=== PATIENT | male | born 1935 | race Caucasian/White ===

== ENCOUNTER 2017-10-24 10:14 | Day surgery (SDC) | payer MEDICARE ==
[~2017-10-24] VITALS: Ht 182.9 cm; Wt 68.7 kg
[~2017-10-24 10:14] MED LIST: ASPI81CH PO; CENTRUM SILVER1 EAC2 PO; HYDACE10B PO; Hydrochlorothia25 MG PO; IRON 100 PLUS1 EACH PO; LEVSOD75 PO; LISI20 PO; LOPE2C PO; METO25ER PO; METR59TL
[2018-03-07] MEDS ORDERED: Omeprazole20 M1 (11:16)
[2018-03-07] MEDS ORDERED: PRAV20 PO (11:18)
[2018-03-07] MEDS ORDERED: FLUOROURACIL (11:21)
== END 2017-10-24 12:13 | disposition home or self-care (01) ==
LOC: ORSCSDS 10:14
PROVIDERS: Internal Medicine Gastroenterology
PROC: 0D758ZZ Dilation of Esophagus, Via Natural or Artificial Opening Endoscopic (ICD-10-PCS; principal; 2017-10-24 11:30)
PROC: 0DB58ZX Excision of Esophagus, Via Natural or Artificial Opening Endoscopic, Diagnostic (ICD-10-PCS; principal; 2017-10-24 11:30)
DX: K22.2 Esophageal obstruction (principal); R13.12 Dysphagia, oropharyngeal phase; K21.9 Gastro-esophageal reflux disease without esophagitis; I10 Essential (primary) hypertension; Z79.82 Long term (current) use of aspirin; Z79.899 Other long term (current) drug therapy; Z87.891 Personal history of nicotine dependence
CPT/HCPCS: 88305; J7120

== ENCOUNTER → 2017-12-11 | Outpatient (CLI) | payer MEDICARE ==
[2017-12-11 12:12] LABS: BASOPHILS ABSOLUTE AUTO 0.03 K/mm3 (0.00-0.23); BASOPHILS PERCENT AUTO 1 % (0-2); EOSINOPHILS ABSOLUTE AUTO 0.27 K/mm3 (0.00-0.68); EOSINOPHILS PERCENT AUTO 5 % (0-6); Hemoglobin 12.4 g/dL (13.5-17.5); IMMATURE GRAN ABSOLUTE AUTO 0.06 K/mm3 (0.00-0.10); IMMATURE GRAN PERCENT AUTO 1 % (0-1); LYMPHOCYTES ABSOLUTE AUTO 0.95 K/mm3 (0.84-5.20); LYMPHOCYTES PERCENT AUTO 17 % (21-46); MONOCYTES ABSOLUTE AUTO 0.71 K/mm3 (0.16-1.47); MONOCYTES PERCENT AUTO 13 % (4-13); Mean Corpuscular HGB 28.8 pg (26.0-34.0); Mean Corpuscular HGB Conc 32.6 g/dL (31.5-36.5); Mean Corpuscular Volume 88 fL (80-100); Mean Platelet Volume 9.3 fL (9.1-12.4); NEUTROPHILS ABSOLUTE AUTO 3.43 K/mm3 (1.96-9.15); NEUTROPHILS PERCENT AUTO 63 % (41-73); Platelet Count 269 K/mm3 (150-400); RDW Coefficient Variation 13.6 % (11.7-14.2); RDW Standard Deviation 43.9 fL (35.1-46.3); White Blood Cell Count 5.45 K/mm3 (4.00-11.30)
[2017-12-11 12:29] LABS: Alanine Aminotransfer (ALT/SGP 34 U/L (12-78); Albumin, Blood 3.6 g/dL (3.4-5.0); Albumin/Globulin Ratio 0.9 (0.8-1.8); Alk Phos 74 U/L (40-126); Anion Gap 5 mmol/L (6-16); Aspartate Aminotrans (AST/SGOT 28 U/L (12-37); Bilirubin, Total 0.6 mg/dL (0.1-1.0); Blood Urea Nitrogen 13 mg/dL (8-24); Bun/Creatinine Ratio 11.3 (12.0-20.0); CO2, Blood 33 mmol/L (21-32); Calcium, Blood 9.5 mg/dL (8.5-10.1); Chloride, Blood 101 mmol/L (98-108); Creatinine, Blood 1.15 mg/dL (0.60-1.20); Globulin, Blood 3.8 g/dL (2.2-4.0); Glomerular Filtration Rate >60 (60-); Glucose, Blood 105 mg/dL (70-99); Potassium, Blood 4.2 mmol/L (3.5-5.5); Sodium, Blood 139 mmol/L (136-145); Total Protein, Blood 7.4 g/dL (6.4-8.2)
[2017-12-11 12:30] LABS: Troponin I <0.017 ng/mL (0.000-0.040)
== END ==
LOC: LAB EV 12:09 → LAB SHORT 12:09
PROVIDERS: Physician Assistant Surgical
DX: R42 Dizziness and giddiness (principal)
CPT/HCPCS: 80048; 80053; 84484; 85025

== ENCOUNTER 2018-03-04 15:33 | Emergency (ER) | payer MEDICARE ==
[~2018-03-04] VITALS: Ht 182.9 cm; Wt 65.8 kg
[2018-03-07] MEDS ORDERED: Omeprazole20 M1 (11:16)
[2018-03-07] MEDS ORDERED: PRAV20 PO (11:18)
[2018-03-07] MEDS ORDERED: FLUOROURACIL (11:21)
== END 2018-03-04 16:40 | disposition home or self-care (01) ==
LOC: ER 15:33
DX: S42.032A Displaced fracture of lateral end of left clavicle, initial encounter for closed fracture (principal); Y93.01 Activity, walking, marching and hiking; Z79.899 Other long term (current) drug therapy; Z79.82 Long term (current) use of aspirin; W18.30XA Fall on same level, unspecified, initial encounter; Z23 Encounter for immunization
CPT/HCPCS: 73030; 90714

== ENCOUNTER 2021-10-21 10:33 | Day surgery (SDC) | payer MEDICARE ==
[~2021-10-21] VITALS: Ht 182.9 cm; Wt 66.3 kg
[~2021-10-21 10:33] MED LIST changes: +Aspirin EC81 MG PO; +FLUOROURACIL; +FLUOROURACIL30 G2; +HYDCHL25 PO; +LISI20; +Metrogel 1% 6060 GM; +Norco 10-325 T1 EACH PO; +OMEP20ER PO; +ONDA4ODT MM; +Omeprazole20 M1; +PRAV20 PO; +PRAVASTATIN SOD10 MG PO; +Prinivil10 MG PO; +VITAMIN D325 MC3 PO
--- NOTE | 2021-10-21 13:31 | NUR ---
10/21/21 1331 Jerald Ford 2% XYLOCAINE WITH EPI 1:100,000 MIXED 1:1 WITH 0.9% INJ SALINE TO ACHIEVE SOLUTION OF 1% XYLOCAINE WITH EPI 1:200,000. DR ANGELO INJ 2ML'S INTO OPSITE AT 1310.
== END 2021-10-21 15:20 | disposition home or self-care (01) ==
LOC: ORSCSDS 10:33
PROVIDERS: Otolaryngology
PROC: 0HX1XZZ Transfer Face Skin, External Approach (ICD-10-PCS; principal; 2021-10-21 11:45)
DX: C44.301 Unspecified malignant neoplasm of skin of nose (principal); I10 Essential (primary) hypertension; K21.9 Gastro-esophageal reflux disease without esophagitis; F20.9 Schizophrenia, unspecified; E03.9 Hypothyroidism, unspecified; Z79.899 Other long term (current) drug therapy; Z79.82 Long term (current) use of aspirin
CPT/HCPCS: 88305; 88331; 88332; A9270; J0171; J1100; J2001; J2370; J2405; J2704; J3010; J7120

== ENCOUNTER → 2021-10-23 | Outpatient (CLI) | payer MEDICARE | END | disposition home or self-care (01) | LOC: LAB 11:52 → LAB SHORT 11:52 | DX: N34.2 Other urethritis (principal) | CPT/HCPCS: 87077; 87086; 87186 ==

== ENCOUNTER → 2023-01-18 | Outpatient (CLI) | payer MEDICARE | END | disposition home or self-care (01) | LOC: PLD 07:58 → LAB SHORT 07:58 | DX: L57.0 Actinic keratosis (principal) | CPT/HCPCS: 88305 ==

== ENCOUNTER 2024-07-26 11:34 | Emergency (ER) | payer MEDICARE ==
[~2024-07-26] VITALS: Ht 182.9 cm; Wt 52.2 kg
[2024-07-26 12:39] VITALS: BP 140/71
== END 2024-07-26 12:40 | disposition home or self-care (01) ==
LOC: ER 11:34
DX: S01.81XA Laceration without foreign body of other part of head, initial encounter (principal); W01.0XXA Fall on same level from slipping, tripping and stumbling without subsequent striking against object, initial encounter; Z79.82 Long term (current) use of aspirin; Z79.899 Other long term (current) drug therapy
CPT/HCPCS: 70450; 99283-25

== ENCOUNTER 2024-12-10 11:04 | Inpatient (IN) | payer MEDICARE ==
[~2024-12-10] VITALS: Ht 182.9 cm; Wt 55.3 kg
[2024-12-10] VITALS (25 sets, daily range): BP systolic 74–130; BP diastolic 45–70
[2024-12-10 11:26] LABS: BASOPHILS ABSOLUTE AUTO 0.05 K/mm3 (0.00-0.23); BASOPHILS PERCENT AUTO 0 % (0-2); EOSINOPHILS ABSOLUTE AUTO 0.03 K/mm3 (0.00-0.68); EOSINOPHILS PERCENT AUTO 0 % (0-6); Hematocrit 31.8 % (37.0-53.0); Hemoglobin 10.2 g/dL (13.5-17.5); IMMATURE GRAN ABSOLUTE AUTO 0.38 K/mm3 (0.00-0.10); IMMATURE GRAN PERCENT AUTO 2 % (0-1); LYMPHOCYTES ABSOLUTE AUTO 0.25 K/mm3 (0.84-5.20); LYMPHOCYTES PERCENT AUTO 1 % (21-46); MONOCYTES ABSOLUTE AUTO 0.89 K/mm3 (0.16-1.47); MONOCYTES PERCENT AUTO 5 % (4-13); Mean Corpuscular HGB 26.3 pg (26.0-34.0); Mean Corpuscular HGB Conc 32.1 g/dL (31.5-36.5); Mean Corpuscular Volume 82 fL (80-100); Mean Platelet Volume 9.3 fL (9.1-12.4); NEUTROPHILS ABSOLUTE AUTO 17.99 K/mm3 (1.96-9.15); NEUTROPHILS PERCENT AUTO 92 % (41-73); Platelet Count 287 K/mm3 (150-400); RDW Coefficient Variation 17.9 % (11.7-14.2); RDW Standard Deviation 52.5 fL (35.1-46.3); Red Blood Cell Count 3.88 M/mm3 (4.30-5.90); White Blood Cell Count 19.59 K/mm3 (4.00-11.30)
[2024-12-10 11:59] LABS: Albumin, Blood 2.8 g/dL (3.4-5.0); Albumin/Globulin Ratio 0.6 (0.8-1.8); Bilirubin, Total 0.6 mg/dL (0.1-1.0); Bun/Creatinine Ratio 23.1 (12.0-20.0); Calcium, Blood 9.5 mg/dL (8.5-10.1); Globulin, Blood 4.9 g/dL (2.2-4.0); Potassium, Blood 3.7 mmol/L (3.5-5.5); Total Protein, Blood 7.7 g/dL (6.4-8.2)
[2024-12-10] MEDS ORDERED: NS 1,000 ML IV SCH (12:00)
[2024-12-10] MEDS ORDERED: CefTRIAXone Sodium 1,000 MG in NS 100 ML IV ONE (12:00)
[2024-12-10] MEDS ORDERED: Azithromycin 500 MG in NS 250 ML IV ONE (12:00)
[2024-12-10] MEDS ORDERED: FLU VACC TS2024-25(6MOS UP)/PF 45 MCG/0.5 ML SYRINGE IM SCH (13:10)
[2024-12-10 13:20] LABS: Source, Urine Clean Catch
[2024-12-10 13:36] LABS: Appearance, Urine Clear (Clear); Bilirubin, Urine Neg (Neg); Blood, Urine Neg (Neg); Glucose Qualitative, Urine Neg (Neg); Ketones, Urine Neg (Neg); Leukocyte Esterase, Urine Neg (Neg); Nitrite, Urine Neg (Neg); Protein, Urine Neg (Neg); Urobilinogen, Urine NORM (Normal)
[2024-12-10] MEDS ORDERED: NS 1,000 ML IV ONE (13:53)
[2024-12-10] MEDS ORDERED: NS 1,000 ML BAG IR ONE ×2 (14:00→14:05)
[2024-12-10 14:12] LABS: Color, Urine Pale Yellow (P-Yellow)
--- NOTE | 2024-12-10 18:58 | NUR ---
SHIFT SUMMARY: PATIENT ADMITTED TO UNIT AT 1520. NEURO: PATIENT ALERT AND ORIENTED X4. PATIENT REPORTS DIZZINESS AT HOME AT TIMES. PATIENT DENIED THIS AFTERNOON. PATIENT STEADY ON FEET. PATIENT WEAK IN ALL EXTREMITIES. PATIENT ABLE TO MAKE NEEDS KNOWN AND USES CALL LIGHT APPROPRIATELY. RESPIRATORY: PATIENT REMAINED STABLE ON 2L VIA NC. SPO2 >94%. PATIENT DENIED SHORTNESS OF BREATH OR DIFFICULTY BREATHING. PATIENT HAS A MOIST COUGH AND REPORTS SPUTUM PRODUCTION. CARDIAC: PATIENT HAS AN IRREGULAR HEART RHYTHM. PATIENT HAS A MURMUR AND REPORTS HE HAS "FOR YEARS". PATIENT EXPERIENCED VARIABLE BLOOD PRESSURES WITH SBP LOW 77 AND MAPS <[address] CULLEN AWARE. HR IN THE 70S-80S. GI/: PATIENT REPORTS IT HAS BEEN RECOMMENDED TO HIM BEFORE TO HAVE A FEED TUBE PLACED. PATIENT REPORTS HE DOES NOT WANT THAT. HE IS AWARE THAT IT IS LIKELY THAT HE IS ASPIRATING WITH SWALLOWING. DR. CULLEN IS AWARE. SPEECH THERAPY ORDERED, BUT NO ORDERS TO KEEP NPO AT THIS TIME. IF SITTING UP STRAIGHT, TAKING SMALL SIPS, PATIENT ABLE TO SWALLOW WITHOUT COUGHING. PER ER REPORT, PATIENT VOIDING IN THE ER. PSYCHSOCIAL: PATIENT VISITED BY MULTIPLE DENOMINATIONAL MEMBERS. PATIENT VISITED BY HIS DAUGHTER AMBROSE. SHE REPORTS CONCERN OVER THE PATIENT'S ROOMMATE TWAN. PATIENT DENIES ANY MISTREATMENT FROM HIS ROOMMATE. PATIENT REPORTS HE FEELS SAFE GOING HOME.
[2024-12-10] MEDS ORDERED: Lactobacil 2-S.Thermo-Bifido 1 1 Cap PO SCH (21:00)
[2024-12-11] VITALS (34 sets, daily range): BP systolic 90–160; BP diastolic 45–69
[2024-12-11 03:59] LABS: BASOPHILS ABSOLUTE AUTO 0.09 K/mm3 (0.00-0.23); BASOPHILS PERCENT AUTO 0 % (0-2); EOSINOPHILS ABSOLUTE AUTO 0.17 K/mm3 (0.00-0.68); EOSINOPHILS PERCENT AUTO 1 % (0-6); Hematocrit 25.7 % (37.0-53.0); Hemoglobin 8.3 g/dL (13.5-17.5); IMMATURE GRAN ABSOLUTE AUTO 0.47 K/mm3 (0.00-0.10); IMMATURE GRAN PERCENT AUTO 2 % (0-1); LYMPHOCYTES ABSOLUTE AUTO 1.33 K/mm3 (0.84-5.20); LYMPHOCYTES PERCENT AUTO 5 % (21-46); MONOCYTES ABSOLUTE AUTO 1.76 K/mm3 (0.16-1.47); MONOCYTES PERCENT AUTO 6 % (4-13); Mean Corpuscular HGB 26.6 pg (26.0-34.0); Mean Corpuscular HGB Conc 32.3 g/dL (31.5-36.5); Mean Corpuscular Volume 82 fL (80-100); Mean Platelet Volume 8.9 fL (9.1-12.4); NEUTROPHILS ABSOLUTE AUTO 25.42 K/mm3 (1.96-9.15); NEUTROPHILS PERCENT AUTO 87 % (41-73); Platelet Count 247 K/mm3 (150-400); RDW Coefficient Variation 17.8 % (11.7-14.2); RDW Standard Deviation 53.1 fL (35.1-46.3); Red Blood Cell Count 3.12 M/mm3 (4.30-5.90); White Blood Cell Count 29.24 K/mm3 (4.00-11.30)
[2024-12-11 04:17] LABS: Albumin, Blood 2.3 g/dL (3.4-5.0); Albumin/Globulin Ratio 0.5 (0.8-1.8); Bilirubin, Total 0.5 mg/dL (0.1-1.0); Calcium, Blood 9.1 mg/dL (8.5-10.1); Creatinine, Blood 0.82 mg/dL (0.60-1.20); Globulin, Blood 4.3 g/dL (2.2-4.0); Magnesium, Blood 1.9 mg/dL (1.6-2.4); Phosphorus, Blood 2.5 mg/dL (2.5-4.9); Potassium, Blood 4.2 mmol/L (3.5-5.5); Total Protein, Blood 6.6 g/dL (6.4-8.2)
[2024-12-11] MEDS ORDERED: Levothyroxine Sodium 0.075 MG Tab PO SCH (06:00)
--- NOTE | 2024-12-11 06:45 | NUR ---
SHIFT ASSESSMENT PT HAS TOLERATED NIGHT WELL WITH NO CHANGES IN STATUS. PT WAS ABLE TO AMBULATE WITH ONE PERSON STANDBY ASSIST TO BEDSIDE TOILET WITHOUT ISSUE. PT ABLE TO COMMUNICATE NEEDS, QUESTIONS, OR CONCERNS CLEARLY. PT CURRENTLY RESTING IN ROOM. WILL CONTINUE TO MONITOR UNTIL REPORT PASSED TO DAY SHIFT TEAM.
[2024-12-11] MEDS ORDERED: Azithromycin 500 MG in NS 250 ML IV SCH (09:00)
[2024-12-11] MEDS ORDERED: Enoxaparin 40 MG/0.4 ML SYR SC SCH (09:00)
--- NOTE | 2024-12-11 09:56 | NUR ---
"Spiritual Care Visit | Pt. Request Pt. is awake in bed. Pt is pleasant. Facilitated introductions and a life review. Listened with empathy and interest. Pt. displayed evidence of trust and asked for prayer. Prayed with Pt. Pt. 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
--- NOTE | 2024-12-11 10:38 | NUR ---
THIS RN ASSUMED CARE OF PT AT 0700. PT IS ALERT AND ORIENTED X4, CALLS OUT APPROPRIATELY. PT SOUNDS CLEAR ON THE RIDE SIDE AND A LITTLE COURSE ON THE LEFT SIDE, ON 2L NC SATTING >92%, PT DENIES SHORTNESS OF BREATH. PT HEART RATE IS IN THE 60s, BLOOD PRESSURE STABLE AT 90/66 MAP >65, PT DENIES CHEST PAIN UPON ASSESSMENT. DR. CULLEN AT BEDSIDE, PT DOES NOT PASS SPEECH EVALUATION, PT HAD A TALK WITH ABOUT A FEEDING TUBE, PT IN THE PAST HAS NOT WANTED A FEEDING TUBE. NO OTHER INTERVENTIONS AT THIS TIME. PLAN OF CARE CONTINUED.
[2024-12-11] MEDS ORDERED: CefTRIAXone Sodium 1,000 MG in NS 100 ML IV SCH (12:00)
--- NOTE | 2024-12-11 15:38 | NUR ---
ASSUMED CARE OF PT, REPORT RECEIVED FROM EWA DAVIS. PT ASLEEP DURING BEDSIDE REPORT.
--- NOTE | 2024-12-11 18:28 | NUR ---
PT SUMMARY; NO ACUTE CHANGE SINCE TRANSFER OF CARE. PT SAT ON THE SIDE OF THE BED FOR DINNER TOLERATED DIET CONSUMED 100% OF ENSURE AND 50% OF MEAL. PT SBA FOR TRANSFERS AMBULATING IN THE ROOM. VITAL HRR 70'S SR, SBP 120'S, SATS ABOVE 95% ON 1L OF O2, AFEBRILE. PT NOW RESTING IN BED CALL LIGHTS IN REACH WILL REPORT TO ONCOMING SHIFT
[2024-12-12 03:28] VITALS: BP 94/61
[2024-12-12 05:13] LABS: BASOPHILS ABSOLUTE AUTO 0.05 K/mm3 (0.00-0.23); BASOPHILS PERCENT AUTO 0 % (0-2); EOSINOPHILS ABSOLUTE AUTO 0.45 K/mm3 (0.00-0.68); EOSINOPHILS PERCENT AUTO 2 % (0-6); Hematocrit 27.4 % (37.0-53.0); Hemoglobin 8.5 g/dL (13.5-17.5); IMMATURE GRAN ABSOLUTE AUTO 0.28 K/mm3 (0.00-0.10); IMMATURE GRAN PERCENT AUTO 1 % (0-1); LYMPHOCYTES ABSOLUTE AUTO 1.08 K/mm3 (0.84-5.20); LYMPHOCYTES PERCENT AUTO 4 % (21-46); MONOCYTES ABSOLUTE AUTO 1.44 K/mm3 (0.16-1.47); MONOCYTES PERCENT AUTO 6 % (4-13); Mean Corpuscular HGB 25.9 pg (26.0-34.0); Mean Corpuscular Volume 84 fL (80-100); Mean Platelet Volume 9.5 fL (9.1-12.4); NEUTROPHILS PERCENT AUTO 87 % (41-73); Platelet Count 274 K/mm3 (150-400); RDW Coefficient Variation 17.7 % (11.7-14.2); RDW Standard Deviation 54.2 fL (35.1-46.3); Red Blood Cell Count 3.28 M/mm3 (4.30-5.90)
[2024-12-12 05:43] LABS: Albumin, Blood 2.2 g/dL (3.4-5.0); Anion Gap 5 mmol/L (3-11); Blood Urea Nitrogen 26 mg/dL (8-24); Bun/Creatinine Ratio 34.6 (12.0-20.0); CO2, Blood 33 mmol/L (21-32); Calcium, Blood 9.2 mg/dL (8.5-10.1); Chloride, Blood 103 mmol/L (98-108); Creatinine, Blood 0.75 mg/dL (0.60-1.20); Glomerular Filtration Rate 86 (60-); Glucose, Blood 105 mg/dL (70-99); Phosphorus, Blood 2.3 mg/dL (2.5-4.9); Potassium, Blood 3.9 mmol/L (3.5-5.5); Sodium, Blood 137 mmol/L (136-145)
--- NOTE | 2024-12-12 07:11 | NUR ---
Shift Summary Pt transferred from ICU. He is on 2L O2 and breathing well, no dyspnea. He does have a weak cough and some coarseness in the base of his L lung. He can cough but it is very weak. He slept well t/o the night. He is 1 SBA to the BR. Pt is AOX4 however is impulsive upon waking up and sets off the bed alarm forgetting to call.
[2024-12-12 07:29] VITALS: BP 92/55
[2024-12-12] MEDS ORDERED: NS 250 ML IV PRN (10:55)
[2024-12-12] MEDS ORDERED: Potassium Phosphate Dibasic 10 MM in Dextrose 5% 250 ML IV STA (12:03)
[2024-12-12] MEDS ORDERED: Midodrine 2.5 MG Tab PO SCH (13:00)
[2024-12-12] MEDS ORDERED: Sodium Phosphate 10 MM in Dextrose 5% 250 ML IV SCH (15:00)
[2024-12-12 15:26] VITALS: BP 137/70
--- NOTE | 2024-12-12 16:40 | NUR ---
spiritual care visit. Pt. is resting but responds when I enter the room . Great grand-daughter is present at bedside, as is a nurse. Pt. verbalized that he was feeling better than the day before. Listen with empathy and a calming presence. Prayed with the Pt. Pt. verbalized gratitude for the spiritual care visit.
--- NOTE | 2024-12-12 17:27 | NUR ---
GOALS OF CARE VISIT TASIA IS A/O X4. THIS PC RN HAS SEEN PT AMBULATING THE HALLWAY WITH FWW AND SBA ASSIST. TASIA IS VERY PLEASANT AND ACTIVLY ENGAUGED IN HIS CARE. HE REPORTS, "I'VE LOST ALL THE WEIGHT I CAN AFFORD TO LOSE." HE DOES NOT HAVE AN APPETITE OR FEEL HUNGER. EATING 1-2 MEALS/DAY (OATMEAL, CREAM OF WHEAT, CREAM SOUP). "I FEEL GOOD WITH THE 3 SUPER JESSEE ENSURES I HAVE BEEN DRINKING HERE." THIS PC RN ENCOURAGED PT TO INCREASE PO CALORIC INTAKE. SUGGESTIONS OF MAKING HIS HOT CEREALS WITH WHOLE MILK OR HALF/HALF. CONTINUE WITH ENSURES 3 TIMES/DAY. TASIA DOES NOT WANT A FEEDING TUBE IF NEEDED. "I HAD ONE THANKS TIME OF 2008 FOR 6 MONTHS. I DON'T WANT TO DO THAT AGAIN. MY HELPED ME." HE IS WILLING TO REVIEW HOSPICE OPTIONS IF HE DOESN'T IMPROVE IN THE NEXT WEEK. HIS GOAL: "ON MY 89TH BIRTHDAY, I WANT TO [place]ALK TO [place] AT [facility]. IF I CAN'T WALK MY FAMILY CAN WHEEL ME UP THERE." PC TO REMAIN AVAILABLE.
[2024-12-12 17:36] VITALS: BP 127/69
[2024-12-12 19:16] VITALS: BP 162/89
[2024-12-13 04:35] VITALS: BP 121/80
[2024-12-13 04:50] LABS: BASOPHILS ABSOLUTE AUTO 0.05 K/mm3 (0.00-0.23); BASOPHILS PERCENT AUTO 0 % (0-2); EOSINOPHILS ABSOLUTE AUTO 0.61 K/mm3 (0.00-0.68); EOSINOPHILS PERCENT AUTO 3 % (0-6); Hematocrit 25.9 % (37.0-53.0); Hemoglobin 8.4 g/dL (13.5-17.5); IMMATURE GRAN ABSOLUTE AUTO 0.14 K/mm3 (0.00-0.10); IMMATURE GRAN PERCENT AUTO 1 % (0-1); LYMPHOCYTES ABSOLUTE AUTO 1.44 K/mm3 (0.84-5.20); LYMPHOCYTES PERCENT AUTO 7 % (21-46); MONOCYTES ABSOLUTE AUTO 1.39 K/mm3 (0.16-1.47); MONOCYTES PERCENT AUTO 7 % (4-13); Mean Corpuscular HGB 26.5 pg (26.0-34.0); Mean Corpuscular HGB Conc 32.4 g/dL (31.5-36.5); Mean Corpuscular Volume 82 fL (80-100); Mean Platelet Volume 9.5 fL (9.1-12.4); NEUTROPHILS ABSOLUTE AUTO 17.13 K/mm3 (1.96-9.15); NEUTROPHILS PERCENT AUTO 83 % (41-73); Platelet Count 270 K/mm3 (150-400); RDW Coefficient Variation 17.4 % (11.7-14.2); RDW Standard Deviation 51.7 fL (35.1-46.3); Red Blood Cell Count 3.17 M/mm3 (4.30-5.90); White Blood Cell Count 20.76 K/mm3 (4.00-11.30)
--- NOTE | 2024-12-13 04:58 | NUR ---
SHIFT SUMMARY PT ALERT AND ORIENTED TIMES 3-4. PT ADMITTED FOR ACUTE HYPOXIC RESPIRATORY FAILURE. ABLE TO MAKE NEEDS KNOWN, APPROPRIATE WITH CALL LIGHT. PT IS INDEPENDENT TO THE TOILET WITH MINIMAL ASSIST, AND ABLE TO AMBULATE AROUND ROOM. PT IS RECEPTIVE TO CARE. BED IN LOW POSITION, CALL LIGHT WITHIN REACH, RAILS TIMES 2.
[2024-12-13 05:14] LABS: Albumin, Blood 2.1 g/dL (3.4-5.0); Anion Gap 7 mmol/L (3-11); Blood Urea Nitrogen 25 mg/dL (8-24); Bun/Creatinine Ratio 37.5 (12.0-20.0); CO2, Blood 31 mmol/L (21-32); Calcium, Blood 9.1 mg/dL (8.5-10.1); Chloride, Blood 100 mmol/L (98-108); Creatinine, Blood 0.67 mg/dL (0.60-1.20); Glomerular Filtration Rate 89 (60-); Glucose, Blood 106 mg/dL (70-99); Phosphorus, Blood 3.3 mg/dL (2.5-4.9); Sodium, Blood 134 mmol/L (136-145)
[2024-12-13 07:33] VITALS: BP 106/76
[2024-12-13 13:30] VITALS: BP 114/78
[2024-12-13 16:51] VITALS: BP 123/70
[2024-12-13 20:33] VITALS: BP 112/69
[2024-12-14 05:10] VITALS: BP 109/67
--- NOTE | 2024-12-14 06:18 | NUR ---
SHIFT SUMMARY PT ALERT AND ORIENTED TIMES 3-4. PT ADMITTED FOR ACUTE HYPOXIC RESPIRATORY FAILURE. ABLE TO MAKE NEEDS KNOWN, APPROPRIATE WITH CALL LIGHT. PT IS INDEPENDENT TO THE TOILET WITH MINIMAL ASSIST, AND ABLE TO AMBULATE AROUND ROOM. PT TOOK WALKS AROUND UNIT WITH WALKER. PT IS RECEPTIVE TO CARE. BED IN LOW POSITION, CALL LIGHT WITHIN REACH, RAILS TIMES 2.
[2024-12-14 07:27] VITALS: BP 120/79
[2024-12-14 12:18] VITALS: BP 122/73
[2024-12-14] MEDS ORDERED: VISBIOME 112.51 EACH PO (14:25)
[2024-12-14] MEDS ORDERED: MIDO5 PO (14:26)
[2024-12-14] MEDS ORDERED: LEVOFLOXACIN750 MG PO (14:26)
--- NOTE | 2024-12-14 15:27 | NUR ---
DC SUMMARY PT DC THIS SHIFT HOME WITH HOME HEALTH. DC INSTRUCTION GONE OVER WITH PT WHOM STATED UNDERSTANDING. PT WAS ESCORTED OUT TO PRIVATE VEHICLE VIA WC BY DANETTE.
== END 2024-12-14 15:00 | disposition home health service (06) | DRG 871 ==
LOC: ER 11:04 → ICUE 13:07 → MEDS 12-11 23:18
PROVIDERS: Emergency Medicine; ADMIT Family Medicine
DX: A41.9 Sepsis, unspecified organism (principal); J18.9 Pneumonia, unspecified organism; J96.01 Acute respiratory failure with hypoxia; I50.32 Chronic diastolic (congestive) heart failure; Z68.1 Body mass index [BMI] 19.9 or less, adult; I95.89 Other hypotension; Z66 Do not resuscitate; I35.0 Nonrheumatic aortic (valve) stenosis; R13.10 Dysphagia, unspecified; E03.9 Hypothyroidism, unspecified; D64.9 Anemia, unspecified; I11.0 Hypertensive heart disease with heart failure; K21.9 Gastro-esophageal reflux disease without esophagitis; E78.5 Hyperlipidemia, unspecified; R62.7 Adult failure to thrive; Z79.82 Long term (current) use of aspirin; Z79.891 Long term (current) use of opiate analgesic; Z85.850 Personal history of malignant neoplasm of thyroid; Z79.890 Hormone replacement therapy
CPT/HCPCS: 36415; 71045; 80053; 80069; 81003; 83605; 83735; 84100; 84484; 85025; 87040; 93005; 93010; 94760; 96365; 97110; 97116; 97162; 99285-25; A9270; J0456; J0696; J1650; J7030; J7050; J7060

== ENCOUNTER 2024-12-29 18:14 | Inpatient (IN) | payer MEDICARE ==
[~2024-12-29] VITALS: Ht 182.9 cm; Wt 52.1 kg
[~2024-12-29 18:14] MED LIST changes: +Enoxaparin 40 MG/0.4 ML SYR SC SCH; +LEVOFLOXACIN750 MG PO; +MIDO5 PO; +VISBIOME 112.51 EACH PO
[2024-12-29 18:45] LABS: BASOPHILS ABSOLUTE AUTO 0.05 K/mm3 (0.00-0.23); BASOPHILS PERCENT AUTO 0 % (0-2); EOSINOPHILS ABSOLUTE AUTO 0.03 K/mm3 (0.00-0.68); EOSINOPHILS PERCENT AUTO 0 % (0-6); Hematocrit 31.7 % (37.0-53.0); Hemoglobin 9.8 g/dL (13.5-17.5); IMMATURE GRAN ABSOLUTE AUTO 0.13 K/mm3 (0.00-0.10); IMMATURE GRAN PERCENT AUTO 1 % (0-1); LYMPHOCYTES PERCENT AUTO 4 % (21-46); MONOCYTES ABSOLUTE AUTO 1.32 K/mm3 (0.16-1.47); MONOCYTES PERCENT AUTO 6 % (4-13); Mean Corpuscular HGB 25.3 pg (26.0-34.0); Mean Corpuscular HGB Conc 30.9 g/dL (31.5-36.5); Mean Corpuscular Volume 82 fL (80-100); NEUTROPHILS PERCENT AUTO 90 % (41-73); Platelet Count 358 K/mm3 (150-400); RDW Coefficient Variation 16.6 % (11.7-14.2); RDW Standard Deviation 49.6 fL (35.1-46.3); Red Blood Cell Count 3.88 M/mm3 (4.30-5.90); White Blood Cell Count 23.03 K/mm3 (4.00-11.30)
[2024-12-29 19:04] LABS: Albumin, Blood 2.6 g/dL (3.4-5.0); Albumin/Globulin Ratio 0.5 (0.8-1.8); Bilirubin, Total 0.4 mg/dL (0.1-1.0); Bun/Creatinine Ratio 30.2 (12.0-20.0); Calcium, Blood 10.5 mg/dL (8.5-10.1); Creatinine, Blood 1.06 mg/dL (0.60-1.20); Globulin, Blood 5.4 g/dL (2.2-4.0); Potassium, Blood 4.7 mmol/L (3.5-5.5)
[2024-12-29] MEDS ORDERED: NS 1,000 ML IV SCH ×2 (19:25→23:35)
[2024-12-29 19:49] LABS: Base Excess Venous 9.8 mmol/L; Bicarbonate Venous 32.6 mmol/L (24.0-30.0); pH Blood Venous 7.48 (7.34-7.37)
[2024-12-29] MEDS ORDERED: Cefepime HCl 1,000 MG in NS 100 ML IV ONE (21:00)
[2024-12-29] MEDS ORDERED: Vancomycin HCL 1,250 MG in NS 250 ML IV ONE (21:05)
[2024-12-29 23:35] VITALS: BP 130/81
[2024-12-29] MEDS ORDERED: FLU VACC TS2024-25(6MOS UP)/PF 45 MCG/0.5 ML SYRINGE IM ONE (23:35)
[2024-12-29] MEDS ORDERED: Ondansetron HCl 2 MG / ML 2ML Vial IV PRN (23:35)
[2024-12-29] MEDS ORDERED: Ipratropium/Albuterol SulF 2.5-0.5MG/3 ML Amp INH PRN (23:40)
[2024-12-30] MEDS ORDERED: Ampicillin Sod/Sulbactam Sod 3 GM in NS 100 ML IV SCH
[2024-12-30 04:00] VITALS: BP 123/69
[2024-12-30 04:01] VITALS: BP 123/69
[2024-12-30 04:42] LABS: BASOPHILS ABSOLUTE AUTO 0.05 K/mm3 (0.00-0.23); BASOPHILS PERCENT AUTO 0 % (0-2); EOSINOPHILS ABSOLUTE AUTO 0.52 K/mm3 (0.00-0.68); EOSINOPHILS PERCENT AUTO 3 % (0-6); Hemoglobin 7.7 g/dL (13.5-17.5); IMMATURE GRAN ABSOLUTE AUTO 0.07 K/mm3 (0.00-0.10); IMMATURE GRAN PERCENT AUTO 0 % (0-1); LYMPHOCYTES ABSOLUTE AUTO 1.34 K/mm3 (0.84-5.20); LYMPHOCYTES PERCENT AUTO 8 % (21-46); MONOCYTES ABSOLUTE AUTO 0.87 K/mm3 (0.16-1.47); MONOCYTES PERCENT AUTO 5 % (4-13); Mean Corpuscular HGB 25.6 pg (26.0-34.0); Mean Corpuscular HGB Conc 30.8 g/dL (31.5-36.5); Mean Corpuscular Volume 83 fL (80-100); Mean Platelet Volume 9.1 fL (9.1-12.4); NEUTROPHILS ABSOLUTE AUTO 13.88 K/mm3 (1.96-9.15); NEUTROPHILS PERCENT AUTO 83 % (41-73); Platelet Count 260 K/mm3 (150-400); RDW Coefficient Variation 16.7 % (11.7-14.2); Red Blood Cell Count 3.01 M/mm3 (4.30-5.90); White Blood Cell Count 16.73 K/mm3 (4.00-11.30)
[2024-12-30 05:11] LABS: Albumin, Blood 2.1 g/dL (3.4-5.0); Albumin/Globulin Ratio 0.5 (0.8-1.8); Bilirubin, Total 0.4 mg/dL (0.1-1.0); Bun/Creatinine Ratio 27.4 (12.0-20.0); Calcium, Blood 9.4 mg/dL (8.5-10.1); Creatinine, Blood 0.99 mg/dL (0.60-1.20); Globulin, Blood 4.4 g/dL (2.2-4.0); Total Protein, Blood 6.5 g/dL (6.4-8.2)
--- NOTE | 2024-12-30 06:46 | NUR ---
SHIFT SUMMARY PT ARRIVED APPROX 2322. ADMITTED WITH ACUTE HYPOXIC RESPIRATORY FAILURE. PT LAYING COMFORTABLY IN BED. PUREWIC NOT SUCTIONING CORRECTLY, SO IT WAS ADJUSTED AND TELE PATCHES AND WIRES REPLACED. PT GIVEN WARM BLANKET AND SLEEPING PEACEFULLY. MORNING LABS SHOWED SIGNIFICANT DROP IN HGB, HCT, AND WBC. DOCTOR SALTER NOTIFIED. ORDERS TO REPEAT BLOOD DRAW AT NOON TO CONFIRM AND CONTINUE TO MONITOR FOR S/SX OF BLOOD LOSS. WILL PASS ON TO DAY SHIFT.
[2024-12-30 08:32] VITALS: BP 136/73
[2024-12-30 12:05] LABS: BASOPHILS ABSOLUTE AUTO 0.05 K/mm3 (0.00-0.23); BASOPHILS PERCENT AUTO 0 % (0-2); EOSINOPHILS ABSOLUTE AUTO 0.46 K/mm3 (0.00-0.68); EOSINOPHILS PERCENT AUTO 4 % (0-6); Hematocrit 29.4 % (37.0-53.0); Hemoglobin 8.9 g/dL (13.5-17.5); IMMATURE GRAN ABSOLUTE AUTO 0.05 K/mm3 (0.00-0.10); IMMATURE GRAN PERCENT AUTO 0 % (0-1); LYMPHOCYTES ABSOLUTE AUTO 0.99 K/mm3 (0.84-5.20); LYMPHOCYTES PERCENT AUTO 8 % (21-46); MONOCYTES ABSOLUTE AUTO 0.67 K/mm3 (0.16-1.47); MONOCYTES PERCENT AUTO 5 % (4-13); Mean Corpuscular HGB 25.5 pg (26.0-34.0); Mean Corpuscular HGB Conc 30.3 g/dL (31.5-36.5); Mean Corpuscular Volume 84 fL (80-100); Mean Platelet Volume 9.1 fL (9.1-12.4); NEUTROPHILS ABSOLUTE AUTO 10.71 K/mm3 (1.96-9.15); NEUTROPHILS PERCENT AUTO 83 % (41-73); Platelet Count 284 K/mm3 (150-400); RDW Coefficient Variation 16.8 % (11.7-14.2); RDW Standard Deviation 51.7 fL (35.1-46.3); Red Blood Cell Count 3.49 M/mm3 (4.30-5.90); White Blood Cell Count 12.93 K/mm3 (4.00-11.30)
[2024-12-30 16:22] VITALS: BP 160/79
--- NOTE | 2024-12-30 16:50 | NUR ---
PALLIATIVE CARE INITIAL VISIT: MET WITH PT IN HIS ROOM. PT IS AWAKE, SMILES WITH INTERACTION AND HE IS ABLE TO PARTICIPATE IN MEANINGFUL CONVERSATION. DISCUSSED HIS CURRENT MEDICAL CONDITION. PT INFORMS THIS RN HE HAD VISIT WITH [facility] LAST WEEK BUT HE DECLINED THEIR SERVICES BECAUSE HE DID NOT THINK HE WAS READY OR NEEDING SERVICES YET. PT STATES "I NOW KNOW I NEED HELP AND I WANT TO START HOSPICE". PT STATES HE HAS 3 PEOPLE WHO ARE CURRENTLY LIVING WITH HIM WHO CAN ASSIST WITH HIS CARE. PT WOULD LIKE TO GO HOME SOON POSSIBLE WITH HOSPICE SERVICES. PT DENIES ANY NEED FOR ASSISTANCE WITH SYMPTOM MANAGEMENT AT THIS TIME. NOTIFIED CARE MANAGEMENT AND DR. RODRIGUEZ OF PATIENTS WISHES.
[2024-12-30] MEDS ORDERED: Vancomycin HCL 1,000 MG in NS 250 ML IV SCH (22:00)
[2024-12-31] MEDS ORDERED: Glycerin Adult Supp 1 EA PR PRN (01:35)
[2024-12-31] MEDS ORDERED: NS 250 ML IV PRN (01:45)
[2024-12-31 05:22] LABS: BASOPHILS ABSOLUTE AUTO 0.06 K/mm3 (0.00-0.23); BASOPHILS PERCENT AUTO 1 % (0-2); EOSINOPHILS ABSOLUTE AUTO 0.71 K/mm3 (0.00-0.68); EOSINOPHILS PERCENT AUTO 6 % (0-6); Hematocrit 31.5 % (37.0-53.0); IMMATURE GRAN ABSOLUTE AUTO 0.06 K/mm3 (0.00-0.10); IMMATURE GRAN PERCENT AUTO 1 % (0-1); LYMPHOCYTES PERCENT AUTO 11 % (21-46); MONOCYTES ABSOLUTE AUTO 1.07 K/mm3 (0.16-1.47); MONOCYTES PERCENT AUTO 9 % (4-13); Mean Corpuscular HGB 25.8 pg (26.0-34.0); Mean Corpuscular HGB Conc 31.7 g/dL (31.5-36.5); Mean Corpuscular Volume 81 fL (80-100); Mean Platelet Volume 9.5 fL (9.1-12.4); NEUTROPHILS ABSOLUTE AUTO 9.04 K/mm3 (1.96-9.15); NEUTROPHILS PERCENT AUTO 74 % (41-73); Platelet Count 314 K/mm3 (150-400); RDW Coefficient Variation 16.4 % (11.7-14.2); RDW Standard Deviation 48.4 fL (35.1-46.3); Red Blood Cell Count 3.87 M/mm3 (4.30-5.90); White Blood Cell Count 12.24 K/mm3 (4.00-11.30)
[2024-12-31 05:59] LABS: Bun/Creatinine Ratio 36.8 (12.0-20.0); Calcium, Blood 9.9 mg/dL (8.5-10.1); Creatinine, Blood 0.95 mg/dL (0.60-1.20); Potassium, Blood 3.6 mmol/L (3.5-5.5)
[2024-12-31] MEDS ORDERED: Pantoprazole Sodium 40 MG Injection IV SCH (06:00)
[2024-12-31 06:32] VITALS: BP 105/71
--- NOTE | 2024-12-31 08:13 | NUR ---
SHIFT SUMMARY PT SITTING UP ON COUCH AT BEDSIDE AT START OF SHIFT. HE WAS ABLE TO EAT 100% OF HIS DINNER, WHICH WAS PUREED. PT STATED HE NEEDED HELP TO HAVE A BM. DR. SALTER ORDERED GLYCERIN SUPPOSITORY. AFTER ADMIN, PT ABLE TO HAVE BM WITH TWO LARGER CLUMPS WHICH WERE QUITE FIRM. PT STATES HE STILL FEELS STOPPED UP . CONTINUING TO MONITOR. PT HAS BEEN PLEASANT AND COOPERATIVE WITH CARE PROVIDED.
[2024-12-31 08:40] VITALS: BP 115/75
[2024-12-31] MEDS ORDERED: Docusate Sodium 100 MG Cap PO SCH (09:00)
[2024-12-31 15:15] VITALS: BP 117/72
--- NOTE | 2024-12-31 16:55 | NUR ---
1600- PT DC IN STABLE CONDITION. PT REFUSED TO USE HIS OXYGEN 3L NC WHEN HE WAS DC. PT LEFT WITH ALL BELONGINGS. PT'S FRIEND PICKED PT UP FOR DC. SURGICAL NURSE PRACTITIONER ASSESSED PT PRIOR TO DC.
== END 2024-12-31 16:03 | disposition hospice, home (50) | DRG 177 ==
LOC: ER 18:14 → MEDS 21:54
PROVIDERS: Family Medicine; Student in an Organized Health Care Education/Training Program; ADMIT Internal Medicine
DX: J69.0 Pneumonitis due to inhalation of food and vomit (principal); J96.01 Acute respiratory failure with hypoxia; I50.32 Chronic diastolic (congestive) heart failure; R64 Cachexia; Z68.1 Body mass index [BMI] 19.9 or less, adult; E44.0 Moderate protein-calorie malnutrition; J18.9 Pneumonia, unspecified organism; Z66 Do not resuscitate; I11.0 Hypertensive heart disease with heart failure; F20.9 Schizophrenia, unspecified; E03.9 Hypothyroidism, unspecified; K21.9 Gastro-esophageal reflux disease without esophagitis; E78.5 Hyperlipidemia, unspecified; Z96.612 Presence of left artificial shoulder joint; I48.91 Unspecified atrial fibrillation; K59.09 Other constipation; D64.9 Anemia, unspecified; D72.829 Elevated white blood cell count, unspecified; R54 Age-related physical debility; Z99.81 Dependence on supplemental oxygen; Z79.891 Long term (current) use of opiate analgesic; Z79.899 Other long term (current) drug therapy; Z79.890 Hormone replacement therapy; Z79.82 Long term (current) use of aspirin; Z85.850 Personal history of malignant neoplasm of thyroid; Z90.89 Acquired absence of other organs; Z87.19 Personal history of other diseases of the digestive system; Z98.890 Other specified postprocedural states; Z86.79 Personal history of other diseases of the circulatory system; Z90.49 Acquired absence of other specified parts of digestive tract; Z98.41 Cataract extraction status, right eye; Z85.828 Personal history of other malignant neoplasm of skin; Z98.42 Cataract extraction status, left eye
CPT/HCPCS: 36415; 71046; 80048; 80053; 82803; 83605; 83880; 85025; 93005; 93010; 96361; 96365; 96375; 99285-25; A9270; J0295; J0692; J1650; J2470; J3370; J7030; J7050